=== PATIENT | female | born 1990 | race Two or more races ===

== ENCOUNTER 2024-05-13 08:05 | Emergency (ER) | payer MEDICAID, SELFPAY ==
--- NOTE | 2024-05-13 08:20 | XR_ITS ---
Examination: CT abdomen and pelvis without contrast. Coronal 3-D reconstructions. Sagittal 2-D reconstructions. Date and time of exam:May 13, 2024 at 0950 hrs. Comparison: February 04, 2024 Indications: Left flank pain difficulty urinating beginning 3 weeks ago, history left kidney stones, bladder calculi, moderate left mild right hydronephrosis on CT abdomen pelvis February 04, 2024 CTDI: vol (mGy): 8.65 DLP: (mGycm): 150 Technique: Axial images of the abdomen have been obtained, 3 mm slice thickness Intravenous contrast material has not been administered. Low dose protocols were performed. One or more of the following dose reduction techniques were used; automated exposure control, adjustment of the mA and/or KV according to patient size, use of iterative reconstruction technique. Findings: No focal liver or splenic lesion Absent gallbladder No pancreatic or adrenal mass 12 mm probable right renal proteinaceous cyst 2 mm lower pole right renal calculus Mild right hydronephrosis, no right ureteral calculi Multiple surgical opacities left kidney, atrophic left kidney with prominent renal scar formation and moderate left hydronephrosis 3 mm posterior left renal calculus No left ureteral calculi Aorta normal size Normal appendix Small fat-containing umbilical hernia Anteverted uterus Right adnexal 26 mm hypodense mass Urinary bladder contracted around a 4.3 cm bladder calculus, urinary bladder wall thickening up to 7 mm Osseous structures are intact Impression: Bilateral renal calculi Mild right hydronephrosis, no ureteral calculi Atrophic left kidney, prominent left renal parenchymal scar formation, moderate left hydronephrosis, no left ureteral calculi 4.3 cm bladder calculus, urinary bladder wall thickening up to 7 mm The overall appearance is consistent with severe cystitis with vesicoureteral reflux
--- NOTE | 2024-05-13 08:21 | PD.EDRME ---
Rapid Medical Screening Exam RME Arrival date/time: 05/13/24 08:05 34-year-old female presents emergency department today stating that she has a kidney stone patient reports significant pain Chief Complaint: Abdominal Pain
[2024-05-13 08:23] VITALS: BP 141/78; PULSE 101; RESP 18; TEMP 37.2; O2SAT 100
[2024-05-13 08:24] VITALS: BMI 30.7
[2024-05-13 08:45] LABS: Collection Type, Urine Clean Catch
[2024-05-13 08:49] VITALS: BP 133/93; PULSE 93; RESP 19; TEMP 36.8; O2SAT 100
--- NOTE | 2024-05-13 08:50 | PD.EDABDPN ---
ED Abdominal Pain RME/HPI General Chief Complaint: Abdominal Pain Stated complaint: KIDNEY STONE TOO BIG TO PASS Time seen by provider: 05/13/24 08:49 Arrival date/time: 05/13/24 08:05 RME / HPI RME / HPI narrative: 05/13/24 08:05 34-year-old female presents emergency department today stating that she has a kidney stone patient reports significant pain DR. PAWAN BERGER ED EVALUATION: 34 year old female presents to the Emergency Department with complaint of bilateral flank pain and bladder pain / suprapubic area pain onset 2017. Pain is described as aching and rated mild to moderate in severity. Associated symptoms a subjective fever and nausea. Patient denies any vomiting, diarrhea, or any other symptoms at this time. PMHx: Recurrent renal stones requiring ESWL and stents, recurrent UTI's. Urologist is Dr. Knight, last saw 02/2023. Nephrostomy 2023 when transferred to [facility] Hx: Methamphetamine, opiates, marijuana, and alcohol abuse. Related Data Previous Rx's ?Medication ?Instructions ?Recorded amoxicillin 875 mg-potassium 1 tab PO Q12H #20 tabs 12/18/23 clavulanate 125 mg tablet ciprofloxacin HCl 500 mg tablet 500 mg PO BID #14 tabs 02/04/24 (Cipro) ibuprofen 800 mg tablet 800 mg PO TID PRN pain #30 tabs 02/04/24 phenazopyridine 200 mg tablet 200 mg PO TID PRN pain 6 doses #6 02/04/24 (Pyridium) tabs ibuprofen 600 mg tablet 600 mg PO Q6H PRN pain #30 tabs 05/13/24 nitrofurantoin 100 mg PO BID 7 days #14 caps 05/13/24 monohydrate/macrocrystals 100 mg capsule (Macrobid) Allergies Allergy/AdvReac Type Severity Reaction Status Date / Time morphine Allergy Severe Difficulty Verified 05/13/24 08:09 Breathing Review of Systems Review of Systems Systems Reviewed: All systems reviewed, normal except as documented Narrative Review of Systems: GEN: + subjective fever, no chills, no weight loss EYES: No discharge, no visual changes, no pain HEENT: No ear pain, no congestion, no sore throat PULM: No shortness of breath, no cough, no congestion CV: No chest pain, no dyspnea on exertion, no palpitations GI: + nausea, no vomiting, no diarrhea, + bilateral flank pain, + suprapubic area pain, no constipation : No frequency, no urgency and no dysuria MUSC/SKEL: No joint pain, no back pain SKIN: No rash PSYCH: No hallucinations, no depression HEME/LYMPH: No easy bleeding or bruising tendencies NEURO: No weakness, no headache Past Medical History Past Medical History NEUROLOGIC: Negative Neurological Disorders or Seizures CARDIAC: Negative Cardiac Disorders or Congestive Heart Failure RESPIRATORY: Positive Pneumonia; Negative Chronic Obstructive Pulmonary Disease (COPD) or Asthma GASTROINTESTINAL: Positive Gastrointestinal Disorders, Hepatitis and Obesity GENITOURINARY: Positive Genitourinary Disorders and Kidney Stones (NEPHROSTOMY 2022); Negative Renal Disease REPRODUCTIVE: Negative Previous Pregnancies MUSCULOSKELETAL: Negative Musculoskeletal Disorders ENDOCRINE: Negative Endocrine Disorders, Diabetes Mellitus Type 1 or Diabetes Mellitus Type 2 HEMATOLOGIC: Negative Blood Disorders or Sickle Cell Disease PSYCHO/SOCIAL: Positive Psychiatric Problems, Recreational Drug Use and Depression OTHER HISTORY: Positive Hospitalization and Chicken Pox; Negative Autoimmune Disease, Shingles, Blood Transfusions, Blood Transfusion Reaction, Anesthesia Reactions, Clostridium Difficile or Cancer Family History FAMILY HISTORY: Positive Family Cardiac Disorders and Family Endocrine Disorders; Negative Family Psychiatric Problems, Family Respiratory Disorders, Family Gastrointestinal Problems, Family Cancer, Family Surgery or Family Anesthesia Reaction Surgical History SURGICAL: Positive Abdominal Surgery Social History SMOKING STATUS: Never smoker SUBSTANCE USE: methamphetamine (last used yesterday) ALCOHOL: Current ED Exam Narrative Physical exam: GENERAL APPEARANCE: Well hydrated, well nourished, in no acute distress. VITALS: All vitals were reviewed and the pulse ox is 100% on room air which is normal according to my interpretation. HEENT: Normocephalic, atramatic, EOMI, EACs are patent. There is no bulge or retraction. Throat without erythema or exudate. Moist oromucosa. No jaundice NECK: Supple, no JVD or bruits. CARDIOVASCULAR: Heart regular without S3-S4 or murmur. No rubs or gallops. LUNGS/CHEST: Clear to auscultation bilaterally. No rales, rhonchi, or wheezing. Normal inspection. ABDOMEN: There is tenderness in the suprapubic area. Normal bowel sounds. No pulsatile masses. No incarcerated hernia. EXTREMITIES: No edema, clubbing, or cyanosis. Intact CSM. Normal inspection and palpation. SKIN: Warm and dry without rashes. Normal inspection. MUSCULOSKELETAL: No gross deformity, full ROM all extremities. Normal inspection. NEURO: Alert and oriented x3. Cranial nerves II through XII grossly intact. There are no other motor or sensory deficits noted. PSYCHIATRIC: Normal mood and affect. No psychosis. Course Quality Measures none Orders Category Date Time Status CT abdomen pelvis wo con Stat Exams 05/13/24 08:20 Completed Alcohol, Blood Medical Stat Lab 05/13/24 08:48 Completed CBC Stat Lab 05/13/24 08:48 Completed Comprehensive Metabolic Panel Stat Lab 05/13/24 08:48 Completed Drug Screen,Urine Stat Lab 05/13/24 08:33 Completed HCG Qualitative,Urine Stat Lab 05/13/24 08:33 Completed Lipase Stat Lab 05/13/24 08:48 Completed UA, C/S IF [Urinalysis, C/S if Indicated] Stat Lab 05/13/24 08:33 Completed HYDROcodone*/APAP 5/325 [[place] 5/325] Med 05/13/24 13:53 Once 1 tab PO X1 ONE Ketorolac Inj [Toradol Inj] Med 05/13/24 08:20 Discontinued 30 mg IVP X1 ONE Ketorolac Inj [Toradol Inj] Med 05/13/24 13:36 Discontinued 30 mg IVP X1 ONE Nitrofurantoin Macro [Macrobid] Med 05/13/24 13:48 Discontinued 100 mg PO X1 ONE Ondansetron Inj [Zofran Inj] Med 05/13/24 08:21 Discontinued 4 mg IV X1 ONE Sodium Chloride 0.9% 1000 ml [Ns] 1,000 ml Med 05/13/24 08:20 Discontinued IV 999 mls/hr Vital Signs Vital signs: Vital Signs Temperature 98.9 F 05/13/24 08:23 Pulse Rate 101 H 05/13/24 08:23 Respiratory Rate 18 05/13/24 08:23 Blood Pressure 141/78 H 05/13/24 08:23 Pulse Oximetry (%) 100 05/13/24 08:23 Oxygen Delivery Method Room Air 05/13/24 08:23 Abdominal Pain MDM MDM Narrative MDM Narrative:: I, Elvira Nogueira, am scribing for and in the presence of Dr. Dominguez. The patient is known to have a big bladder stone. And also big bilateral vesicular ureteral reflux. Came in complaining of suprapubic pain. WBC count is 13,000. CMP and lipase are negative. UA is positive for 3+ bacteria. Which is not unusual for her. Alcohol negative. Talk screen is positive for methamphetamine. test is negative. CT abdomen and pelvic was reviewed by and interpreted by me: Status post cholecystectomy. Liver and pancreas and spleen unremarkable. There is some hydronephrosis and hydroureter was involving both kidneys and ureters. But there is no ureteral stone. Raising the possibility of vesicular ureteral reflux. There is a 4.3 cm stone inside the bladder. These findings are almost identical to the one in January 2024 CT. No free air. No free fluid. No obstruction. In the emergency department the patient received IV fluid, Toradol and IV and IM, and Macrobid for urinary tract infection. Even though she is allergic to morphine, she is not allergic to [place]. Therefore I gave her [place]. 1:50 PM, I spoke to and discussed with , her urologist. He knows her very well. He recommend that I put him back on the antibiotic that she was sensitive to in the past microbiology lab. Which is Macrobid. He okay for her to follow-up with him as an outpatient. Patient data External records reviewed:: [facility] previous records (Reviewed last ED visit dated 02/04/24, discharged with the following: UTI) Clinical information provided by:: patient Social determinants that could affect healthcare access:: substance use (methamphetamine, opiates, marijuana, alcohol abuse) Patient has the following chronic illnesses:: Recurrent renal stones requiring ESWL and stents, recurrent UTI's. Urologist is Dr. Knight. How is presenting disease/condition affected by chronic disease/condition?: caused by Evaluation data The following diagnostics were reviewed and interpreted by me:: lab results and radiology exam(s) Lab and/or radiology exams considered but not ordered:: none Interpretation Summary: See above under MDM narrative. RADIOLOGY Procedure(s): CT abdomen pelvis wo con Accession Number(s): [id number] cc: Ammy (SOCIAL MEDIA SR STRATEGY MANAGER),Sheldon SOCIAL MEDIA SR STRATEGY MANAGER; Juan Antonio Jones MD; Esthela Gibbs NP~ Examination: CT abdomen and pelvis without contrast. Coronal 3-D reconstructions. Sagittal 2-D reconstructions. Date and time of exam:May 13, 2024 at 0950 hrs. Comparison: February 04, 2024 Indications: Left flank pain difficulty urinating beginning 3 weeks ago, history left kidney stones, bladder calculi, moderate left mild right hydronephrosis on CT abdomen pelvis February 04, 2024 CTDI: vol (mGy): 8.65 DLP: (mGycm): 150 Technique: Axial images of the abdomen have been obtained, 3 mm slice thickness Intravenous contrast material has not been administered. Low dose protocols were performed. One or more of the following dose reduction techniques were used; automated exposure control, adjustment of the mA and/or KV according to patient size, use of iterative reconstruction technique. Findings: No focal liver or splenic lesion Absent gallbladder No pancreatic or adrenal mass 12 mm probable right renal proteinaceous cyst 2 mm lower pole right renal calculus Mild right hydronephrosis, no right ureteral calculi Multiple surgical opacities left kidney, atrophic left kidney with prominent renal scar formation and moderate left hydronephrosis 3 mm posterior left renal calculus No left ureteral calculi Aorta normal size Normal appendix Small fat-containing umbilical hernia Anteverted uterus Right adnexal 26 mm hypodense mass Urinary bladder contracted around a 4.3 cm bladder calculus, urinary bladder wall thickening up to 7 mm Osseous structures are intact Impression: Bilateral renal calculi Mild right hydronephrosis, no ureteral calculi Atrophic left kidney, prominent left renal parenchymal scar formation, moderate left hydronephrosis, no left ureteral calculi 4.3 cm bladder calculus, urinary bladder wall thickening up to 7 mm The overall appearance is consistent with severe cystitis with vesicoureteral reflux Dictated By: Juan Antonio Jones MD Medications / Prescriptions Medications or Prescriptions considered but not ordered:: none Medication administrations:: Medication Administration History Discontinued Medications Sodium Chloride (Ns) 1,000 mls @ 999 mls/hr IV .Q1H1M ONE Stop: 05/13/24 09:20 Last Infusion: 05/13/24 13:14 Dose: Infused Documented By: Admin: 05/13/24 09:13 Dose: 999 mls/hr Documented By: GM Ketorolac Tromethamine (Ketorolac Inj 30 Mg/Ml Vial) 30 mg IVP X1 ONE Stop: 05/13/24 08:21 Last Admin: 05/13/24 09:14 Dose: 30 mg Documented By: GM Ketorolac Tromethamine (Ketorolac Inj 30 Mg/Ml Vial) 30 mg IVP X1 ONE Stop: 05/13/24 13:37 Last Admin: 05/13/24 13:39 Dose: 30 mg Documented By: DO Nitrofurantoin Macrocrystals (Nitrofurantoin Macro 100 Mg Capsule) 100 mg PO X1 ONE Stop: 05/13/24 13:49 Ondansetron HCl (Ondansetron Inj 2 Mg/Ml Inj 2 Ml) 4 mg IV X1 ONE; Protocol Stop: 05/13/24 08:22 Last Admin: 05/13/24 09:14 Dose: 4 mg Documented By: GM see above Consultations Consultation(s) initiated? (list below): Yes Diagnosis Differential diagnosis abdominal pain: abdominal pain, calculus of kidney, diverticulitis and gastroenteritis Most likely diagnosis given after review of the tests above:: Vesicular ureteral reflux. Cystitis. Bladder calculi Admission Indicated Admission indicated?: not indicated Admission Request Was there a request for admission?: Yes Admission Attestation Admission request attestation: Discussed case with [] from Hospitalist service regarding admission. Discussed patients ED course, exam findings, labs, and radiology results. The Hospitalist [agrees,declines] to accept the patient for admission. Disposition Plan Disposition Plan: Discharge Discharge Attestation Discharge Attestation: The patient and all family members were given an opportunity to ask questions and understood the discharge instructions. Discharge instructions specifically effects, indications for sooner follow up or return to the emergency department, and the expected course of current diagnosis. Patient condition: Stable Discharge Plan Plan Patient Disposition: HOME (Self Care) Disposition Comment: Stable and improved Prescriptions/Referrals Prescriptions/Med Rec: New nitrofurantoin monohyd/m-cryst [Macrobid] 100 mg capsule 100 mg PO BID 7 Days Qty: 14 0RF Rx Instructions: must administer with a meal/food ibuprofen 600 mg tablet 600 mg PO Q6H PRN (Reason: pain) Qty: 30 0RF No Action amoxicillin-pot clavulanate 875-125 mg tablet 1 tab PO Q12H Qty: 20 0RF ciprofloxacin HCl [Cipro] 500 mg tablet 500 mg PO BID Qty: 14 0RF phenazopyridine [Pyridium] 200 mg tablet 200 mg PO TID PRN (Reason: pain) Qty: 6 0RF ibuprofen 800 mg tablet 800 mg PO TID PRN (Reason: pain) Qty: 30 0RF Referrals: Junior Knight MD [Physician] - In 1 week Esthela Rosario NP [Primary Care Provider] - In 1 week Problem List Clinical Impression: Bladder calculi, Cystitis, Vesicoureteral reflux Patient/Caregiver Discharge Instructions Education Materials: Understanding Bladder Stones, ED CYSTITIS Female Adult Additional Instructions: You have bladder infection, bladder stones and bladder kidney reflux disease. Take medication as prescribed. I spoke with Dr. Knight. He wanted you to see him as an outpatient. Please make an appointment. With him. Return the nearest emergency department if condition worsens or if new symptoms develop especially fever or trouble urinating. Print Language: Welsh Stand Alone Forms: Leisa Award Info., Patient Portal Info Letter
[2024-05-13 08:53] LABS: Bilirubin,Urine Negative (Negative); Blood,Urine 2+ (Negative); Glucose, Urine Negative (Negative); Ketones,Urine Negative (Negative); Leukocyte Esterase,Urine Positive (Negative); Nitrite,Urine Negative (Negative); Protein,Urine 3+ (Neg - Trace); Specific Gravity,Urine 1.011 (1.001-1.035); Urobilinogen,Urine Negative mg/dL (0.0-1.0)
[2024-05-13 08:55] LABS: HCG Qualitative,Urine Negative
[2024-05-13 09:03] LABS: Amphetamine/Methamp Scrn,U Positive (Negative); Barbiturate Screen,Urine Negative (Negative); Benzodiazepines Screen,Urine Negative (Negative); Benzoylecgonine Screen, Ur Negative (Negative); Fentanyl Screen,Urine Negative (Negative); Opiate Screen,Urine Negative (Negative); THC Screen,Urine Negative (Negative)
[2024-05-13 09:09] LABS: Basophils # (Auto) 0.1 Thou/mm3 (0.0-0.2); Basophils % (Auto) 1 % (0-2.5); Eosinophils # (Auto) 0.3 Thou/mm3 (0.0-0.5); Eosinophils % (Auto) 2 % (0-10); Hematocrit 33.3 % (36.0-46.0); Hemoglobin 10.1 g/dL (12.0-16.0); Immature Granulocytes % (Auto) 0 % (0-0); Immature Granulocytes Auto 0.04 Thou/mm3 (0.00-0.00); Lymphocytes % (Auto) 15 % (10-50); Mean Corpuscular HGB Conc 30.3 g/dl (31.0-37.0); Mean Corpuscular Hemoglobin 21.5 pg (25.0-35.0); Mean Corpuscular Volume 71 fL (80-100); Monocytes # (Auto) 1.2 Thou/mm3 (0.0-0.8); Monocytes % (Auto) 9 % (0-12); Neutrophils # (Auto) 9.6 Thou/mm3 (1.8-7.7); Neutrophils % (Auto) 73 % (37-80); Nucleated Red Blood Cell % 0 /100 WBC (0); Platelet Count 275 Thou/mm3 (140-440); RDW Standard Deviation 40.8 fL (36.4-46.3); White Blood Count 13.1 Thou/mm3 (3.6-11.0)
[2024-05-13] MEDS: SODIUM CHLORIDE 0.9% 1000 ML 1,000 ML 999 ML IV (09:13)
[2024-05-13] MEDS: KETOROLAC INJ 30 MG/ML VIAL IVP ×2 (09:14→13:39)
[2024-05-13] MEDS: ONDANSETRON INJ 2 MG/ML INJ 2 ML 4 MG IV (09:14)
[2024-05-13 09:18] LABS: Clarity,Urine Turbid (Clear/Hazy); Color,Urine Colorless (Lt Yel-Yel)
[2024-05-13 09:19] LABS: Bacteria,Urine 3+; Culture Indicated,Urine Contaminated; RBC,Urine 145 /hpf (0-3); Squamous Epithelial Cell,Urine 12 /hpf (0-5); Transitional Epi Cells,Urine 1 /hpf (0-5); WBC,Urine 1408 /hpf (0-5)
[2024-05-13 09:32] LABS: Alanine Aminotransferase 14 U/L (10-49); Albumin, Serum 4.6 gm/dL (3.5-5.0); Albumin/Globulin Ratio 1.4 (1.2-2.2); Alcohol, Blood Medical < 3.0 mg/dL (0-10.0); Alkaline Phosphatase 69 U/L (46-116); Anion Gap 11 (7-16); Aspartate Amino Transferase 25 U/L (0-34); BUN/Creatinine Ratio 18 Ratio (12-20); Bilirubin,Total 0.4 mg/dL (0.3-1.2); Blood Urea Nitrogen 21 mg/dL (9-23); Calcium 9.4 mg/dL (8.3-10.6); Calcium (Corrected) 9.4 mg/dL (8.5-10.1); Carbon Dioxide 22.4 mMol/L (20.0-31.0); Chloride 103 mMol/L (98-107); Creatinine (Component) 1.2 mg/dL (0.6-1.3); Estimated Creatinine Clearance 54.7 mL/min (>60); Globulin 3.2 gm/dL (2.3-3.5); Glucose 91 mg/dL (74-106); Lipase 29 U/L (12-53); Osmolality,Calculated 274 (275-295); Potassium 4.2 mMol/L (3.4-5.1); Sodium 136 mMol/L (136-145); Total Protein 7.8 gm/dL (5.7-8.2); eGFR > 60 See Note
[2024-05-13 10:00] VITALS: BP 133/79; PULSE 78; RESP 20; TEMP 37.1; O2SAT 99
[2024-05-13 11:00] VITALS: BP 122/72; PULSE 84; RESP 18; TEMP 37.3; O2SAT 96
[2024-05-13 12:58] VITALS: BP 118/72; PULSE 92; RESP 15; TEMP 37.4; O2SAT 100
[2024-05-13] MEDS: NITROFURANTOIN MACRO 100 MG CAPSULE PO (13:59)
[2024-05-13] MEDS: HYDROcodone/APAP 5/325 TABLET 1 TAB PO (13:59)
--- NOTE | 2024-05-13 14:20 | PC.NURSE ---
@7330- VERBAL ORDER RECEIVED FOR CESPEDES CATHETER INSERTION @1422- RN AT BEDSIDE; PT REFUSING CESPEDES CATHETER AT THIS TIME AND REPORTS STILL BEING ABLE TO PEE NORMALLY. PT ALSO STATES, I WILL SEE THE UROLOGIST TOMORROW. @9601- DR. VILLALTA MADE AWARE; CESPEDES CATHETER INSERTION CANCELED AT THIS TIME.
[2024-05-13 14:25] VITALS: BP 127/93; PULSE 94; RESP 19; TEMP 36.8; O2SAT 99
== END 2024-05-13 14:32 | disposition home or self-care (01) ==
PROVIDERS: Nurse Practitioner Primary Care; Emergency Provider Emergency Medicine; PCP Registered Nurse Community Health
DX: N30.90 Cystitis, unspecified without hematuria (principal); N21.0 Calculus in bladder; N26.1 Atrophy of kidney (terminal); N13.70 Vesicoureteral-reflux, unspecified; N13.30 Unspecified hydronephrosis
CPT/HCPCS: 36415; 74176; 80053; 80307; 80320; 81001; 81025; 83690; 85025; 96361; 96374; 96375; 96376; 99284; J1885; J2405; J7030; A9270; G0480

== ENCOUNTER 2024-05-14 03:17 | Emergency (ER) | payer MEDICAID, SELFPAY ==
[2024-05-14 03:17] VITALS: BMI 30.9
[2024-05-14 04:04] VITALS: BP 124/78; PULSE 114; RESP 19; TEMP 38.2; O2SAT 99
--- NOTE | 2024-05-14 04:20 | PD.EDRME ---
Rapid Medical Screening Exam E Arrival date/time: 05/14/24 03:17 34-year-old female past medical history of kidney stones presents emergency department complaining of fever and pelvic pain. Chief Complaint: Urogenital-Female Vital signs: Vital Signs Temperature 100.7 F H 05/14/24 04:04 Pulse Rate 114 H 05/14/24 04:04 Respiratory Rate 19 05/14/24 04:04 Blood Pressure 124/78 05/14/24 04:04 Pulse Oximetry (%) 99 05/14/24 04:04 Oxygen Delivery Method Room Air 05/14/24 04:04 Vital signs reviewed by provider: Yes
--- NOTE | 2024-05-14 04:47 | PC.NURSE ---
PT ELOPED THE ER PER SECURITY.
== END 2024-05-14 04:55 | disposition left against medical advice (07) ==
LOC: SERX 04:30
PROVIDERS: Emergency Provider Emergency Medicine; PCP Registered Nurse Community Health
DX: R50.9 Fever, unspecified (principal); R10.2 Pelvic and perineal pain; Z53.29 Procedure and treatment not carried out because of patient's decision for other reasons
CPT/HCPCS: 80053; 81001; 85025; 99281

== ENCOUNTER 2024-05-14 08:53 | Emergency (ER) | payer MEDICAID, SELFPAY ==
[2024-05-14] VITALS (11 sets, daily range): BP systolic 96–143; BP diastolic 48–84; PULSE 90–124; RESP 19–21; TEMP 36.7–39.2; O2SAT 94–100; BMI 30.9
--- NOTE | 2024-05-14 09:20 | PD.EDFMALE ---
ED Female Urogenital RME/HPI General Chief complaint: Urogenital-Female Stated complaint: KIDNEY STONES Time Seen by Provider: 05/14/24 09:11 Arrival date/time: 05/14/24 08:53 RME / HPI RME / HPI Narrative: 34 year old female with history of recurrent kidney stones requiring ESWL and stents, bladder stones, previous nephrostomy tube, recurrent UTIs, methemphetamine use presents to the ED BIBA from home for evaluation of worsening bilateral flank pain today. Pain described as aching, rating as severe. Accompanied by fevers, chills, nausea, pressure in her bladder, and dysuria. Patient was evaluated here yesterday for similar symptoms and states symptoms today are worse. Patient admits to using meth 3 days ago. Patient reports she last saw urologist Dr. Knight a year ago. Related Data Home Medications ?Medication ?Instructions ?Recorded ?Confirmed No Known Home Medications 05/14/24 05/14/24 Allergies Allergy/AdvReac Type Severity Reaction Status Date / Time morphine Allergy Severe Difficulty Verified 05/14/24 09:20 Breathing Review of Systems Review of Systems Narrative Review of Systems: GEN: +fevers, +chills, no weight loss EYES: No discharge, no visual changes, no pain HEENT: No ear pain, no congestion, no sore throat PULM: No shortness of breath, no cough, no congestion CV: No chest pain, no dyspnea on exertion, no palpitations GI: +nausea, no vomiting, no diarrhea, +pain, no constipation : No frequency, no urgency, +dysuria MUSC/SKEL No joint pain, +back pain SKIN: No rash PSYCH: No hallucinations, no depression HEME/LYMPH: No easy bleeding or bruising tendencies NEURO: No weakness, no headache Past Medical History Past Medical History RESPIRATORY: Positive Pneumonia GASTROINTESTINAL: Positive Gastrointestinal Disorders, Hepatitis and Obesity GENITOURINARY: Positive Genitourinary Disorders and Kidney Stones PSYCHO/SOCIAL: Positive Psychiatric Problems, Recreational Drug Use and Depression OTHER HISTORY: Positive Hospitalization and Chicken Pox Family History FAMILY HISTORY: Positive Family Cardiac Disorders Surgical History SURGICAL: Positive Abdominal Surgery Social History SMOKING STATUS: Never smoker SUBSTANCE USE: methamphetamine (last used yesterday) ED Exam Narrative Physical exam: GENERAL APPEARANCE: Well hydrated, well nourished, in no acute distress. VITALS: All vitals were reviewed, patient is febrile and the pulse ox is 100% on room air which is normal according to my interpretation. HEENT: Normocephalic, atramatic, EOMI, EACs are patent. There is no bulge or retraction. Throat without erythema or exudate. Moist oromucosa. No jaundice NECK: Supple, no JVD or bruits. CARDIOVASCULAR: Heart regular without S3-S4 or murmur. No rubs or gallops. LUNGS/CHEST: Clear to auscultation bilaterally. No rales, rhonchi, or wheezing. Normal inspection. ABDOMEN: Soft, suprapubic tenderness to palpation, bladder is distended, with normal bowel sounds. No pulsatile masses. No rebound, rigidity, or guarding. No incarcerated hernia. EXTREMITIES: Normal inspection and palpation. No edema, clubbing, or cyanosis. Intact CSM SKIN: Warm and dry without rashes. Normal inspection. MUSCULOSKELETAL: Normal inspection. No gross deformity, full ROM all extremities NEURO: Alert and oriented x3. Cranial nerves II through XII grossly intact. There are no other motor or sensory deficits noted. PSYCHIATRIC: Normal mood and affect. No psychosis Course Quality Measures Current suspected stage: sepsis Possible source: genitourinary Blood cultures ordered: completed in ED Antibiotic ordered: Yes Pertinent labs: 05/14/24 05/14/24 09:50 13:23 Lactic Acid 2.3 H mMol/L 1.2 mMol/L (0.4-2.0) (0.4-2.0) Procalcitonin 0.52 H ng/ml (0.0-0.49) sepsis Orders Category Date Time Status Bedside Influenza A&B Antigen Test NOW Care 05/14/24 09:17 Completed Zelaya [Urinary Catheter] QS Care 05/14/24 09:33 Active Miscellaneous Nursing Order NOW Care 05/14/24 13:51 Active Transfer to another facility [Transfer/Discharge] Discharge 05/14/[address] abdomen pelvis wo con Stat Exams 05/14/24 09:34 Completed Blood Culture (Lab) Stat Lab 05/14/24 09:50 Received CBC Stat Lab 05/14/24 09:50 Completed CMP [Comprehensive Metabolic Panel] Stat Lab 05/14/24 09:50 Completed Lactic Acid [Lactate (Lactic Acid)] Stat Lab 05/14/24 09:50 Completed Lactic Acid, 3 HR Stat Lab 05/14/24 13:23 Completed Lipase Stat Lab 05/14/24 09:50 Completed Procalcitonin Stat Lab 05/14/24 09:50 Completed UA, C/S IF [Urinalysis, C/S if Indicated] Stat Lab 05/14/24 11:05 Completed Urine Culture Stat Lab 05/14/24 11:05 Received Acetaminophen Tab [Tylenol ES Tab] Med 05/14/24 09:15 Discontinued 1,000 mg PO X1 ONE Ibuprofen Tab [Motrin Tab] Med 05/14/24 10:47 Discontinued 600 mg PO X1 ONE Imipenem/Cilastatin Inj [Primaxin Inj] 1,000 mg Med 05/14/24 09:18 Discontinued Sodium Chloride 0.9% 250 ml [Ns] 250 ml IV Q6HR Imipenem/Cilastatin Inj [Primaxin Inj] 1,000 mg Med 05/14/24 10:15 Discontinued Sodium Chloride 0.9% 250 ml [Ns] 250 ml IV X1 Meropenem Inj [Merrem Inj] 1,000 mg Med 05/14/24 22:00 Active Sodium Chloride 0.9% (P) [Ns 0.9% (P)] 50 ml IV Q8HR Sodium Chloride 0.9% 1000 ml [Ns] 1,000 ml Med 05/14/24 15:00 Active IV 100 mls/hr Sodium Chloride 0.9% 1000 ml [Ns] 2,000 ml Med 05/14/24 09:16 Discontinued IV 999 mls/hr Vital Signs Vital signs: Vital Signs Temperature 101.5 F H 05/14/24 08:59 Pulse Rate 124 H 05/14/24 08:59 Respiratory Rate 21 H 05/14/24 08:59 Blood Pressure 96/48 L 05/14/24 08:59 Pulse Oximetry (%) 100 05/14/24 08:59 Oxygen Delivery Method Room Air 05/14/24 08:59 Urogenital - Female MDM Narrative MDM Narrative:: I, Karyna Rubi, shaunna scribing for and in the presence of Dr. Dominguez. WBC count of 27,000. Potassium of 5.2. The rest of the CMP is negative. test was done yesterday and we came back negative. UA was done yesterday and came back with 3+ positive bacteria. And she was put on Macrobid. Lactic acid is now 2.3. Procalcitonin is now 0.52. Influenza is now negative. I saw the patient yesterday. Before discharging the patient home I offered to put a Zelaya in the bladder. But patient refused. She came back today with a temperature of 101.5 and evidence of urinary retention. Zelaya was inserted by nursing staff and we got approximately 1300 mL of cloudy urine. And immediately after the Zelaya was done and the bladder was drained the abdomen is no more painful. And nontender. And I went ahead and canceled the CT of the abdomen and pelvic for today. The last CT was done yesterday. When the patient came in with a fever 101.5, we called for septic alert. And treatment was according to the septic protocol including the IV fluid IV and the biotics namely imipenem because that was ESBL based on the last urine culture back in November 2023. I also give the patient Tylenol for the fever. She continues to do well and much improved. The last vital sign including a temperature 98.9 and vital signs are stable. Patient is sleeping comfortably but easily awakened to answer question well. Oriented x 4 GCS of 15. And no tender abdomen. 12 AM, I spoke to and discussed with Dr. Knight, urologist. He knew her very well from previous encounters back in 2022. He said he is no longer seeing her. Dr. LUTZ is not on-call. And he is semiretired. 1:40 PM, Dr. ferraro, resident of Dr. Elder, attending hospitalist on-call. He has assessed the patient for possible admit. But he does not feel comfortable admitting the patient without the backup of the urologist. He wants the patient transferred 5:30 PM, I spoke to and discussed with , urologist from [place]. He said there is no need for emergent transfer. He said to admit and treat for the urinary tract infection. Keep the Zelaya in. Once the patient to discharge the patient can follow-up with him at one of his clinics in [place]. And he said that the transfer nurse would be able to tell us the logistics of the clinics address, phone number Dr. Gee Chaudhary in 2 weeks[address] Address [address] [place] [address]. . office will contact the pt for the appointment 5:50 PM, I spoke to and discussed with , hospitalist on-call. He said that he would evaluate the patient in the emergency department. 6 PM, still pending decision from hospitalist team regarding admission or not, the patient is stable improved and is now signed out to Dr. Kaba Critical care time is approximately 35 minutes excluding any procedure. The high probability of sudden, clinically significant deterioration in the patient?s condition required the highest level of my preparedness to intervene urgently. The services I provided to this patient were to treat and/or prevent clinically significant deterioration. Services included the following: chart data review, reviewing nursing notes and/or old charts, documentation time, franchise field consultant collaboration regarding findings and treatment options, medication orders and management, direct patient care, vital sign assessments and ordering, interpreting and reviewing diagnostic studies and lab tests. Aggregate critical care time includes only time during which I was engaged in work directly related to the patient?s care, as described above, whether at bedside or elsewhere in the Emergency Department. It did not include time spent performing other reported procedures or the services of residents, students, nurses or physician assistants. Patient data External records reviewed:: [facility] previous records (I reviewed results from yesterdays ED visit (05/13/2024)) and EMS form Clinical information provided by:: patient and EMS Social determinants that could affect healthcare access:: substance use (Methamphetamine ) Patient has the following chronic illnesses:: recurrent kidney stones requiring ESWL and stents, bladder stones, previous nephrostomy tube, recurrent UTIs, methemphetamine use How is presenting disease/condition affected by chronic disease/condition?: exacerbated by Evaluation data The following diagnostics were reviewed and interpreted by me:: lab results Lab and/or radiology exams considered but not ordered:: None Interpretation Summary: Ordering Physician: Sheldon Dominguez MD Date of Service: 05/14/24 Procedure(s): CT abdomen pelvis wo [facility] Accession Number(s): [id number] cc: Juan Antonio Jones MD; Sheldon Dominguez MD; Esthela Gibbs NP~ Examination: CT abdomen and pelvis without contrast. Coronal 3-D reconstructions. Sagittal 2-D reconstructions. Date and time of exam:May 14, 2024 10:25 AM INDICATIONS: Fever flank pain today, history kidney stones CTDI: vol (mGy): 7.38 DLP: (mGycm): 408 Technique: Axial images of the abdomen have been obtained, 3 mm slice thickness Intravenous contrast material has not been administered. Low dose protocols were performed. One or more of the following dose reduction techniques were used; automated exposure control, adjustment of the mA and/or KV according to patient size, use of iterative reconstruction technique. Findings: No focal liver or splenic lesions Absent gallbladder No pancreatic or adrenal mass Atrophic left kidney with 3 mm calculus 2 mm 1 mm right renal calculi Mild to moderate right hydronephrosis no right ureteral calculi Again noted large bladder calculus, 4 cm, adjacent 12 mm bladder calculus with marked urinary bladder wall thickening Urinary Zelaya catheter is present Normal appendix No bowel obstruction No diverticulitis Bilateral adnexal cysts, the largest on the right side 24 mm IMPRESSION: Bilateral renal calculi Mild to moderate right hydronephrosis, most likely secondary to vesicoureteral reflux Cystitis pattern with bladder calculi, the largest 4 cm Normal appendix Bilateral adnexal cysts Dictated By: Juan Antonio Jones MD Signed By: <Electronically signed by Juan Antonio Jones MD in [place]> 05/14/24 1353 Medications / Prescriptions Medications or Prescriptions considered but not ordered:: None Medication administrations:: Medication Administration History Meropenem 1,000 mg/ Sodium (Chloride) 50 mls @ 100 mls/hr IV Q8HR SHAWN Stop: 05/21/24 21:59 Sodium Chloride (Ns) 1,000 mls @ 100 mls/hr IV .Q10H SHAWN Stop: 06/13/24 14:59 Last Admin: 05/14/24 16:59 Dose: 100 mls/hr Documented By: AM Discontinued Medications Acetaminophen (Acetaminophen 500 Mg Tablet) 1,000 mg PO X1 ONE Stop: 05/14/24 09:16 Last Admin: 05/14/24 09:28 Dose: 1,000 mg Documented By: AM Sodium Chloride (Ns) 2,000 mls @ 999 mls/hr IV .Q2H1M ONE Stop: 05/14/24 11:16 Last Infusion: 05/14/24 12:45 Dose: Infused Documented By: Admin: 05/14/24 10:05 Dose: 999 mls/hr Documented By: AM Imipenem/Cilastatin Sodium 1, (000 mg/ Sodium Chloride) 250 mls @ 250 mls/hr IV Q6HR STA Stop: 05/14/24 10:17 Last Admin: 05/14/24 12:49 Dose: Not Given Documented By: AM Non-Admin Reason: Discontinued Imipenem/Cilastatin Sodium 1, (000 mg/ Sodium Chloride) 250 mls @ 250 mls/hr IV X1 ONE Stop: 05/14/24 11:14 Last Infusion: 05/14/24 12:00 Dose: Infused Documented By: Admin: 05/14/24 10:56 Dose: 250 mls/hr Documented By: AM Ibuprofen (Ibuprofen Tab 600 Mg Tablet) 600 mg PO X1 ONE Stop: 05/14/24 10:48 Last Admin: 05/14/24 10:55 Dose: 600 mg Documented By: AM See above Consultations Consultation(s) initiated? (list below): Yes Consultation #1 (Physician, Specialty, Details): I spoke with urologist Dr. Knight. Discussed patients PMHx, HPI, ED course, exam findings, labs results as noted above. Time: 12:30 Consultation #2 (Physician, Specialty, Details): I spoke with hospitalist Dr. Elder. Discussed patients PMHx, HPI, ED course, exam findings, labs, and radiology results as noted above. Diagnosis Urogenital Female Differential Diagnosis: urinary tract infection and other (Bladder stone, kidney stone, pyelonephritis) Most likely diagnosis given after review of the tests above:: Bladder calculi sepsis vesicoureteral reflux UTI Admission Indicated Admission indicated?: indicated Admission Request Was there a request for admission?: Yes Admission Attestation Admission request attestation: Discussed case with [] from Hospitalist service regarding admission. Discussed patients ED course, exam findings, labs, and radiology results. The Hospitalist [agrees,declines] to accept the patient for admission. Disposition Plan Disposition Plan: Admit Critical Care Time Critical Care Time Critical Care Time: Yes Total Critical Care Time (min.): 35 Attestation: The high probability of sudden, clinically significant deterioration in the patient's condition required the highest level of my preparedness to intervene urgently. The services I provided to this patient were to treat and/or prevent clinically significant deterioration. Services included the following: chart data review, reviewing nursing notes and/or old charts, documentation time, franchise field consultant collaboration regarding findings and treatment options, medication orders and management, direct patient care, vital sign assessments and ordering, interpreting and reviewing diagnostic studies and lab tests. Aggregate critical care time includes only time during which I was engaged in work directly related to the patient's care, as described above, whether at bedside or elsewhere in the Emergency Department. It did not include time spent performing other reported procedures or the services of residents, students, nurses or physician assistants. Discharge Plan Plan Disposition Comment: Stable and improved at signout Prescriptions/Referrals Prescriptions/Med Rec: No Action No Known Home Medications Referrals: Esthela Rosario [employer] [Primary Care Provider] - In 1 week Problem List Clinical Impression: Bladder calculi, Sepsis, Vesicoureteral reflux, Urinary tract infection Patient/Caregiver Discharge Instructions Additional Instructions: . Print Language: Turkish
[2024-05-14] MEDS: ACETAMINOPHEN 500 MG TABLET 1000 MG PO (09:28)
--- NOTE | 2024-05-14 09:34 | XR_ITS ---
Examination: CT abdomen and pelvis without contrast. Coronal 3-D reconstructions. Sagittal 2-D reconstructions. Date and time of exam:May 14, 2024 10:25 AM INDICATIONS: Fever flank pain today, history kidney stones CTDI: vol (mGy): 7.38 DLP: (mGycm): 408 Technique: Axial images of the abdomen have been obtained, 3 mm slice thickness Intravenous contrast material has not been administered. Low dose protocols were performed. One or more of the following dose reduction techniques were used; automated exposure control, adjustment of the mA and/or KV according to patient size, use of iterative reconstruction technique. Findings: No focal liver or splenic lesions Absent gallbladder No pancreatic or adrenal mass Atrophic left kidney with 3 mm calculus 2 mm 1 mm right renal calculi Mild to moderate right hydronephrosis no right ureteral calculi Again noted large bladder calculus, 4 cm, adjacent 12 mm bladder calculus with marked urinary bladder wall thickening Urinary Zelaya catheter is present Normal appendix No bowel obstruction No diverticulitis Bilateral adnexal cysts, the largest on the right side 24 mm IMPRESSION: Bilateral renal calculi Mild to moderate right hydronephrosis, most likely secondary to vesicoureteral reflux Cystitis pattern with bladder calculi, the largest 4 cm Normal appendix Bilateral adnexal cysts
[2024-05-14] MEDS: SODIUM CHLORIDE 0.9% 1000 ML 2,000 ML 999 ML IV (10:05)
[2024-05-14 10:07] LABS: Lactate (Lactic Acid) 2.3 mMol/L (0.4-2.0)
[2024-05-14 10:12] LABS: Basophils # (Auto) 0.1 Thou/mm3 (0.0-0.2); Basophils % (Auto) 0 % (0-2.5); Eosinophils # (Auto) 0.1 Thou/mm3 (0.0-0.5); Eosinophils % (Auto) 1 % (0-10); Hematocrit 32.7 % (36.0-46.0); Immature Granulocytes % (Auto) 1 % (0-0); Immature Granulocytes Auto 0.18 Thou/mm3 (0.00-0.00); Lymphocytes # (Auto) 2.6 Thou/mm3 (1.0-4.8); Lymphocytes % (Auto) 10 % (10-50); Mean Corpuscular HGB Conc 30.6 g/dl (31.0-37.0); Mean Corpuscular Hemoglobin 21.7 pg (25.0-35.0); Mean Corpuscular Volume 71 fL (80-100); Monocytes # (Auto) 2.1 Thou/mm3 (0.0-0.8); Monocytes % (Auto) 8 % (0-12); Neutrophils # (Auto) 22.3 Thou/mm3 (1.8-7.7); Neutrophils % (Auto) 81 % (37-80); Nucleated Red Blood Cell % 0 /100 WBC (0); Platelet Count 314 Thou/mm3 (140-440); RDW Standard Deviation 40.8 fL (36.4-46.3); Red Blood Count 4.61 Miln/mm3 (4.00-5.20); White Blood Count 27.4 Thou/mm3 (3.6-11.0)
[2024-05-14 10:39] LABS: Alanine Aminotransferase 12 U/L (10-49); Albumin, Serum 4.2 gm/dL (3.5-5.0); Albumin/Globulin Ratio 1.4 (1.2-2.2); Alkaline Phosphatase 67 U/L (46-116); Anion Gap 10 (7-16); Aspartate Amino Transferase 24 U/L (0-34); BUN/Creatinine Ratio 13 Ratio (12-20); Bilirubin,Total 0.5 mg/dL (0.3-1.2); Blood Urea Nitrogen 15 mg/dL (9-23); Calcium 9.3 mg/dL (8.3-10.6); Calcium (Corrected) 9.3 mg/dL (8.5-10.1); Carbon Dioxide 21.3 mMol/L (20.0-31.0); Chloride 102 mMol/L (98-107); Creatinine (Component) 1.2 mg/dL (0.6-1.3); Estimated Creatinine Clearance 54.9 mL/min (>60); Glucose 98 mg/dL (74-106); Lipase 32 U/L (12-53); Osmolality,Calculated 267 (275-295); Potassium 5.2 mMol/L (3.4-5.1); Procalcitonin 0.52 ng/ml (0.0-0.49); Sodium 133 mMol/L (136-145); Total Protein 7.2 gm/dL (5.7-8.2); eGFR > 60 See Note
[2024-05-14] MEDS: IBUPROFEN TAB 600 MG TABLET PO (10:55)
[2024-05-14] MEDS: SODIUM CHLORIDE 0.9% IV (10:56)
[2024-05-14] MEDS: CILASTATIN IV (10:56)
[2024-05-14] MEDS: IMIPENEM IV (10:56)
[2024-05-14 13:05] LABS: Reflex Lactate? Y
[2024-05-14 13:31] LABS: Lactic Acid, 3 HR 1.2 mMol/L (0.4-2.0)
--- NOTE | 2024-05-14 13:45 | PD.RESEVENT ---
Documentation for date of: 05/14/24 Event Note Event Note: 34 y/o F with PMHx of recurrent kidney stones requiring urological intervention including stent placements, bladder stones, previous history of nephrostomy tube, recurrent urinary tract infectionsm, history of substance abuse disorder (methamphetamine) presented due to B/L pain in the flanks. Patient is having fevers, chills, nausea, and pain in the suprapubic area. Patient of note has recent ED visit yesteraday for similar symptoms, however states patients symptoms are worsening. Reviewed chart patient with leukocytosis trending up compared to yesterday, lactic acid trending up, hyperkalemia, there is concern of source control at this time. Spoke to Urology Dr. Knight recommended patient to be transferred to another institution for potential urological intervention. We recommend starting the patient on Meropenem, as well as IV hydration and symptomatic management with tylenol and zofran and transfer for possible urological intervention. Case discussed with my attending Dr. Jerrod Patricia MD PGY-1
--- NOTE | 2024-05-14 14:32 | PC.CM ---
Addendum entered by Rita Flores RN 05/14/24 19:41: 1925 informed ED charge nurse regarding transfer update so far. Pending call to [facility] when Dr. Kaba is available. [id number] received call from Emily at [facility], wants to speak to Dr. Kaba. I informed her is not available to speak at this time. But will return call when she is available. Addendum entered by Rita Flores RN 05/14/24 18:23: 1819 called [facility], spoke to Alyssa and initiated the transfer. She stated they are doing case by case. She stated she will review and call back. Addendum entered by Rita Flores RN 05/14/24 18:17: 1817 received call from charge nurse to continue looking to transfer the pt out. Addendum entered by Rita Flores RN 05/14/24 17:58: [address] Dominguez regarding the transfer. He stated need to follow up with hospitalist team to reassess the pt., if they agree to admit the pt. He stated he is getting off at [address] Kaba is oncoming physician. He stated to check with Dr. Kaba after hospitalist team reassess the pt. Addendum entered by Riat Flores RN 05/14/24 17:36: 1730 received call from Nitin at [facility]. She stated Dr. Chaudhary wants to speak to Dr. Dominguez for peer to peer. Conference call connected. He gave recommendations. He stated looks like pt has pyelonephritis and Zelaya needs to be placed, which is already done and pt can be admitted and hospitalist team can treat the pt with abx. Once it's treated pt can follow up with him as outpatient in 2 weeks. He stated Nitin can give me the information for his clinic which is follow up with Dr. Gee Chaudhary in [address] weeks[address] [place] [address]. . Nitin stated she is going to fax information to his clinic and office will contact the pt for the appointment. Addendum entered by Rita Flores RN 05/14/24 17:01: 1700 clinicals sent to [facility] TC. Addendum entered by Rita Flores RN 05/14/24 16:55: 1655 Called [facility], spoke to Nitin for update. She stated urologist is reviewing the case. Addendum entered by Rita Flores RN 05/14/24 15:26: 1530 Called [facility], spoke to Nitin and initiated the transfer. She wants to speak to Dr. Dominguez, conference call connected. Addendum entered by Rita Flores RN 05/14/24 15:09: 1509 clinicals sent to [facility]. Addendum entered by Cary Coe RN 05/14/24 14:52: 1452 Dipti from [facility] called back at this time and declined pt due to capacity Addendum entered by Cary Coe RN 05/14/24 14:42: 1442 spoke to Dipti at [facility] transfer center, chart faxed will wait for call back Addendum entered by Rita Flores RN 05/14/24 14:33: [address] Dominguez that physician notes states pt will be admitted and Dr. Vazquez will be consulting the pt. Dr. Dominguez stated it was the initial plan but residents spoke to Dr. Vazquez, he wants the pt transferred,. He stated he will update his notes. Original Note: [id number] received call from charge nurse that pt needs to be transferred for urology for bladder stone.
[2024-05-14 15:09] LABS: Collection Type, Urine Catheter
[2024-05-14 15:28] LABS: Bilirubin,Urine Negative (Negative); Blood,Urine Trace (Negative); Clarity,Urine Turbid (Clear/Hazy); Color,Urine Colorless (Lt Yel-Yel); Glucose, Urine Negative (Negative); Ketones,Urine Negative (Negative); Leukocyte Esterase,Urine Positive (Negative); Nitrite,Urine Negative (Negative); Protein,Urine Trace (Neg - Trace); RBC,Urine 16 /hpf (0-3); Squamous Epithelial Cell,Urine < 1 /hpf (0-5); Urobilinogen,Urine Negative mg/dL (0.0-1.0); WBC,Urine 116 /hpf (0-5)
[2024-05-14 15:29] LABS: Culture Indicated,Urine Yes
[2024-05-14] MEDS: SODIUM CHLORIDE 0.9% 1000 ML 1,000 ML 100 ML IV (16:59)
--- NOTE | 2024-05-14 18:08 | EVENTNT_ITS ---
Documentation for date of: 05/14/24 Event Note Event Note: 34 years old female with past medical history of recurrent kidney stones requiring urological procedures including stent placement, bladder stones, previous history of nephrostomy tube, recurrent urinary tract infections, histor y of substance abuse presented to the ED with complaint of bilateral pain in the flanks. Patient is having fevers, chills, nausea, and pain in the suprapubic area. Patient of note has recent ED visit yesterday for similar symptoms, however states patients symptoms are worsening. In the ED, she was tachycardiac, Tachypneic, Febrile. Lab results showed worsening leukocytosis compared to yesterday at 27.4 today.? Lactic acidosis of 2.3, BUN/creatinine 15/1.2, potassium 5.2 and positive procalcitonin.? Urine with trace blood, positive leukocyte esterase, 16 RBCs and 116 WBC.? Also noted to have hepatitis C antibody positive on 03/09/2023.? Abdominal/pelvis CT was done, which shows atrophic left kidney with 3 mm calculus, 2 mm and 1 mm right renal calculi, mild to moderate right hydronephrosis without ureteric calculi, bladder calculi, 4 cm and 12 mm, cystitis pattern and bilateral adnexal cysts.? Previous team had spoken with the urologist Dr Knight who recommended the patient to be transferred to another institution for potential urological intervention. We reached out to Dr. Murrieta, explained him about patient's situation, he also recommended transfer to higher center for possible urological intervention.? We recommend IV antibiotics, hydration, analgesics, antiemetics, antipyretics and transfer to higher center for possible urological intervention. Drew Marvin MD
--- NOTE | 2024-05-14 18:14 | PD.EDADDENDU ---
Emergency Room Addendum <Elvira Nogueira - Last Filed: 05/14/24 21:57> Addendum Narrative: 1800: Care assumed from Dr. Dominguez, the previous shift emergency physician. Past medical, surgical, social and family history reviewed. Vitals and home medications reviewed. I will assume the care of the patient at this time. Please refer to the emergency department record for history and examination.? Physical exam by me shows patient under no acute distress at this time. Patient sleeping at this time. Blood pressure 110/60, heart rate of 84. 96% on room air. 2130: Discussed test HPI, PMHx, lab, radiology results and/or management with [facility] and they deny transfer. <Emily Kaba MD - Last Filed: 05/14/24 23:15> Addendum Narrative: 1800: Care assumed from Dr. Dominguez, the previous shift emergency physician. Past medical, surgical, social and family history reviewed. Vitals and home medications reviewed. I will assume the care of the patient at this time. Please refer to the emergency department record for history and examination.? Physical exam by me shows patient under no acute distress at this time. Patient sleeping at this time. Blood pressure 110/60, heart rate of 84. 96% on room air. 2130: Discussed test HPI, PMHx, lab, radiology results and/or management with [facility] and they deny transfer. 2230: See nurses notes. The patient was yelling and screaming and cursing at the nurses. She got up pulled her IV out. I tried to de-escalate and tell the patient that I am willing to help her stay in the hospital however I cannot control when she will be accepted for transfer. The patient is alert and oriented x 3 and states that she wants to leave. She is angry and just does not want to wait. She is tired of waiting to be transferred. Risk and benefits discussed and the patient walked out. Please see nurses notes for further update.
--- NOTE | 2024-05-14 20:00 | PC.NURSE ---
1999 [facility] DECLINED PT DUE TO CAPACITY.
--- NOTE | 2024-05-14 22:17 | PC.NURSE ---
I WENT INTO PT ROOM DUE TO HER YELLING AT [facility] AND SLAMMING HER SHAH STAND AROUND. PT CONTINUED TO YELL AT ME AND DR. AMAYA ENTERED THE ROOM AND INFORMED HER SHE FREE TO LEAVE IF SHE WOULD LIKE . I TOLD HER WE NEED TO REMOVED HER IV AND CATHETER AND SHE YELLED AT ME STATING YOUR NOT GOING TO TOUCH ME YOU FUCKING BITCH AND RIPPED OUT HER IV. PRIMARY RN MIGUE IN THE ROOM TO TALK TO PT AT THIS TIME.
--- NOTE | 2024-05-15 05:38 | PC.NURSE ---
Pt very restless, aggresive and verbaly abusive twards staff. pt denies pain. pt has [facility] cath in place and wants to leave with the cath because its helping her. pt demanding to let her leave. Spoke with Dr Valerio stateds garrison cath can stay in. pt wants to se her other dr tomorrow. I attempted to reason with her about taking [facility] cath out, however she insisted.. pt demanding to leave. IV removed. Pt was informed verbaly that her condition and the cath could cause her harm or lead to her Pt verbalized she undersood and sighned out AMA with garrison cath in place.
== END 2024-05-14 23:30 | disposition left against medical advice (07) ==
PROVIDERS: Emergency Medicine; Emergency Provider Emergency Medicine; PCP Registered Nurse Community Health
DX: A41.9 Sepsis, unspecified organism (principal); N13.6 Pyonephrosis; N21.0 Calculus in bladder; Z53.29 Procedure and treatment not carried out because of patient's decision for other reasons
CPT/HCPCS: 51702; 36415; 74176; 80053; 81001; 83605; 83690; 84145; 84703; 85025; 87040; 87086; 87400; 96361; 96365; 99284; J0743; J7030; J7050; A9270

== ENCOUNTER 2024-05-15 14:22 | Emergency (ER) | payer MEDICAID, SELFPAY ==
--- NOTE | 2024-05-15 14:27 | PC.NURSE ---
PT BROUGHT TO TRIAGE BY EMS. WHILE MEDIC GIVING REPORT TO TRIAGE NURSE PT YELLED I JUST WANT THIS OUT (POINTS TO COY) AND I DON'T WANT TO WAIT. EXPLAINED THAT SHE NEEDED TO BE CHECKED IN FIRST AND PT YELLED ADWOA AND WALKED OUT
== END 2024-05-16 00:37 | disposition left against medical advice (07) ==
LOC: SERX 14:40
PROVIDERS: Emergency Provider Emergency Medicine
DX: Z53.21 Procedure and treatment not carried out due to patient leaving prior to being seen by health care provider (principal)

== ENCOUNTER 2024-09-23 15:38 | Emergency (ER) | payer MEDICAID, SELFPAY ==
[2024-09-23 16:05] VITALS: BP 132/86; PULSE 94; RESP 20; TEMP 37.3; O2SAT 98; BMI 26.2
--- NOTE | 2024-09-23 16:13 | XR_ITS ---
Examination: PA lateral chest 2 views TECHNIQUE: Upright PA lateral chest 2 views Date and time: September 23, 2024 1623 hours Comparison December 16, 2023 INDICATIONS: Coughing fever beginning 2 days ago. FINDINGS: Normal heart size Lungs are clear. The osseous structures are intact IMPRESSION: No active disease
[2024-09-23] MEDS: DEXAMETHASONE SOD PHOS INJ 10 MG/ML VIAL PO (16:33)
[2024-09-23] MEDS: ALBUTEROL/IPRATROPIUM (Duoneb) RT SOL 3 ML NEBU INH (16:39)
[2024-09-23 16:40] VITALS: PULSE 91; RESP 20; O2SAT 100
[2024-09-23 17:30] LABS: Strep A Rapid Negative (Negative)
--- NOTE | 2024-09-23 18:49 | EDNOTE_ITS ---
Upper Respiratory Inf. RME/HPI General Chief Complaint: Flu Like Symptoms Stated Complaint: COUGH WITH FEVER AND VOMITING Time Seen by Provider: 09/23/24 15:55 Arrival date/time: 09/23/24 15:38 RME / HPI RME / HPI Narrative: 34-year-old female presents to the ED with a complaint of headache, fever, cough, runny nose and nasal congestion, laryngitis and bodyaches, as well as vomiting. Related Data Previous Rx's ?Medication ?Instructions ?Recorded albuterol sulfate 90 mcg/actuation 2 puff inhalation Q 4H PRN 09/23/24 aerosol inhaler shortness of breath or wheez ing #8.5 grams amoxicillin 875 mg-potassium 1 tab PO BID Sinusitis #2 0 tabs 09/23/24 clavulanate 125 mg tablet ondansetron 4 mg disintegrating 4 mg PO Q6H PRN nausea and 09/23/24 tablet vomiting #10 tabs Allergies Allergy/AdvReac Type Severity Reaction Status Date / Time morphine Allergy Severe Difficulty Verified 09/23/24 15:41 Breathing Course Quality Measures none Orders Category Date Time Status Bedside COVID-19 Antigen Test NOW Care 09/23/24 16:13 Active Bedside Influenza A&B Antigen Test NOW Care 09/23/24 16:14 Completed XR chest 2V Stat Exams 09/23/24 16:13 Completed Strep A Rapid Stat Lab 09/23/24 17:09 Completed Albuterol/Ipratr Rt Lorri [Duoneb Rt Lorri] Med 09/23/24 16:13 Discontinued 3 ml INH X1 ONE Dexamethasone Inj [Decadron Inj] Med 09/23/24 16:13 Discontinued 10 mg PO X1 ONE Vital Signs Vital signs: Vital Signs Temperature 99.2 F 09/23/24 16:05 Pulse Rate 94 09/23/24 16:05 Respiratory Rate 20 09/23/24 16:05 Blood Pressure 132/86 H 09/23/24 16:05 Pulse Oximetry (%) 98 09/23/24 16:05 Oxygen Delivery Method Room Air 09/23/24 16:05 Upper Respiratory Infection Patient data External records reviewed:: None Clinical information provided by:: patient Social determinants that could affect healthcare access:: none Patient has the following chronic illnesses:: History of pneumonia, multiple dental abscesses, history of bladder calculi and history of pyelonephritis. How is presenting disease/condition affected by chronic disease/condition?: uneffected by Evaluation data The following diagnostics were reviewed and interpreted by me:: lab results and radiology exam(s) Lab and/or radiology exams considered but not ordered:: COVID, influenza A/B, and strep screen negative. Interpretation Summary: XR Chest: FINDINGS: Normal heart size Lungs are clear. The osseous structures are intact IMPRESSION: No active disease Medications / Prescriptions Medications or Prescriptions considered but not ordered:: N/A Medication administrations:: Medication Administration History Discontinued Medications Albuterol/Ipratropium (Albuterol/Ipratropium (Duoneb) Rt Lorri 3 Ml Nebu) 3 ml INH X1 ONE Stop: 09/23/24 16:14 Last Admin: 09/23/24 16:39 Dose: 3 ml Documented By: DORINDA Dexamethasone Sodium Phosphate (Dexamethasone Sod Phos Inj 10 Mg/Ml Vial) 10 mg PO X1 ONE Stop: 09/23/24 16:14 Last Admin: 09/23/24 16:33 Dose: 10 mg Documented By: OVI Altamirano and dexamethasone 10 mg p.o. Consultations Consultation(s) initiated? (list below): No Diagnosis Upper Respiratory Differential Diagnosis: upper respiratory infection, sinusitis, viral infection, bronchitis, influenza and pharyngitis Most likely diagnosis given after review of the tests above:: Sinusitis and bronchitis Admission Indicated Admission indicated?: not indicated Explain why admission is indicated or not indicated:: Patient is stable for discharge. Admission Request Was there a request for admission?: No Disposition Plan Disposition Plan: Discharge Discharge Attestation Discharge Attestation: The patient and all family members were given an opportunity to ask questions and understood the discharge instructions. Discharge instructions specifically effects, indications for sooner follow up or return to the emergency department, and the expected course of current diagnosis. Patient condition: Stable Discharge Plan Plan Patient Disposition: HOME (Self Care) Discharge Disposition comment: Stable and improved Prescriptions/Referrals Prescriptions/Med Rec: New amoxicillin-pot clavulanate 875-125 mg tablet 1 tab PO BID Qty: 20 0RF albuterol sulfate 90 mcg/actuation HFA aerosol inhaler 2 puff inhalation Q4H PRN (Reason: shortness of breath or wheezing) Qty: 8.5 0RF ondansetron 4 mg tablet,disintegrating 4 mg PO Q6H PRN (Reason: nausea and vomiting) Qty: 10 0RF Referrals: No Primary/Family,Physician [Primary Care Provider] - In 1 week Problem List Clinical Impression: Bronchitis, Sinusitis Patient/Caregiver Discharge Instructions Education Materials: ED Bronchitis with Wheezing (Adult), ED Sinusitis (Antibiotic Treatment) Additional Instructions: Take the antibiotics as prescribed and complete the course even though you may be feeling better. Follow-up with your primary care physician in 24 to 48 hours. Return to the ED for any new or worsening symptoms. Print Language: Ukrainian Stand Alone Forms: Leisa Award Info., Patient Portal Info Letter PA/[employer] SALES REPRESENTATIVE Supervising Physician PA/[employer] SALES REPRESENTATIVE Supervising Physician: Dr. Dias
== END 2024-09-23 19:15 | disposition home or self-care (01) ==
PROVIDERS: Physician Assistant; Emergency Provider Emergency Medicine
DX: J40 Bronchitis, not specified as acute or chronic (principal); J32.9 Chronic sinusitis, unspecified
CPT/HCPCS: 71046; 87400; 87651; 87811; 94640; 99283; A9270; J1100

== ENCOUNTER 2024-10-07 19:05 | Emergency (ER) | payer MEDICAID, SELFPAY ==
[2024-10-07 19:06] VITALS: BMI 32.7
[2024-10-07 19:59] VITALS: BP 128/60; PULSE 111; RESP 22; TEMP 37.1; O2SAT 99
--- NOTE | 2024-10-07 20:55 | EDNOTE_ITS ---
ED Headache RME/HPI General Chief Complaint: Flu Like Symptoms Stated Complaint: COUGHING X 17 DAYS, HEADACHE X 3 DAYS Time Seen by Provider: 10/07/24 20:20 Arrival date/time: 10/07/24 19:05 RME / HPI RME / HPI Narrative: 34-year-old female presents to the ED with a complaint of a headache that has been ongoing for 2 weeks. She was seen here previously and diagnosed with sinusitis and bronchitis. She completed the antibiotics but is still having a significant headache. She ran out of her inhaler. She denies fever chills, runny nose or nasal congestion, ear pain or sore throat. She still has a cough and is having difficulty sleeping due to the cough. She is also complaining of bilateral upper dental pain. Related Data Previous Rx's ?Medication ?Instructions ?Recorded albuterol sulfate 90 mcg/actuation 2 puff inhalation Q 4H PRN 09/23/24 aerosol inhaler shortness of breath or wheez ing #8.5 grams amoxicillin 875 mg-potassium 1 tab PO BID Sinusitis #2 0 tabs 09/23/24 clavulanate 125 mg tablet ondansetron 4 mg disintegrating 4 mg PO Q6H PRN nausea and 09/23/24 tablet vomiting #10 tabs albuterol sulfate 90 mcg/actuation 2 puff inhalation Q 4H PRN 10/07/24 aerosol inhaler shortness of breath or wheez ing #8.5 grams clindamycin HCl 300 mg capsule 300 mg PO TID 10 days # 30 caps 10/07/24 Allergies Allergy/AdvReac Type Severity Reaction Status Date / Time morphine Allergy Severe Difficulty Verified 10/07/24 19:09 Breathing Review of Systems Review of Systems Systems Reviewed: All systems reviewed, normal except as documented Past Medical History Past Medical History NEUROLOGIC: Negative Neurological Disorders or Seizures CARDIAC: Negative Cardiac Disorders or Congestive Heart Failure RESPIRATORY: Positive Pneumonia; Negative Chronic Obstructive Pulmonary Disease (COPD) or Asthma GASTROINTESTINAL: Positive Gastrointestinal Disorders, Hepatitis and Obesity GENITOURINARY: Positive Genitourinary Disorders and Kidney Stones; Negative Renal Disease REPRODUCTIVE: Negative Previous Pregnancies MUSCULOSKELETAL: Negative Musculoskeletal Disorders ENDOCRINE: Negative Endocrine Disorders, Diabetes Mellitus Type 1 or Diabetes Mellitus Type 2 HEMATOLOGIC: Negative Blood Disorders or Sickle Cell Disease PSYCHO/SOCIAL: Positive Psychiatric Problems, Recreational Drug Use and Depression OTHER HISTORY: Positive Hospitalization and Chicken Pox; Negative Autoimmune Disease, Shingles, Blood Transfusions, Blood Transfusion Reaction, Anesthesia Reactions, Clostridium Difficile or Cancer Family History FAMILY HISTORY: Positive Family Cardiac Disorders; Negative Family Psychiatric Problems, Family Respiratory Disorders, Family Gastrointestinal Problems, Family Cancer, Family Surgery or Family Anesthesia Reaction Surgical History SURGICAL: Positive Abdominal Surgery Social History SMOKING STATUS: Never smoker SUBSTANCE USE: methamphetamine (last used yesterday) ED Exam Narrative Physical exam: Alert 34-year-old female, no acute distress, nontoxic-appearing. Lungs are jd r, cardiovascular regular rate and rhythm without murmurs. Neck is supple, no adenopathy, TMs are without erythema, nares are pale and boggy, no frontal sinus tenderness. Positive bilateral maxillary sinus tenderness as well as maxillary bilateral maxillary tenderness. Pharynx is without erythema. Dentition is extremely poor with caries noted to all teeth with decay down to the gumline both upper and lower bilaterally. No obvious apical abscess noted. Abdomen is soft and nontender. She admits to meth abuse. Course Course Course Narrative: She was given Tylenol 1 g p.o. and Toradol 30 mg IM. Quality Measures none Orders Category Date Time Status Acetaminophen Tab [Tylenol ES Tab] Med 10/07/24 21:45 Discontinued 1,000 mg PO X1 ONE Ketorolac Inj [Toradol Inj] Med 10/07/24 20:59 Discontinued 30 mg IM X1 ONE Vital Signs Vital signs: Vital Signs Temperature 98.7 F 10/07/24 19:59 Pulse Rate 111 H 10/07/24 19:59 Respiratory Rate 22 H 10/07/24 19:59 Blood Pressure 128/60 10/07/24 19:59 Pulse Oximetry (%) 99 10/07/24 19:59 Oxygen Delivery Method Room Air 10/07/24 19:59 Headache MDM Narrative MDM Narrative:: 34-year-old female presents to the ED with a complaint of a headache that has been ongoing for 2 weeks. She was seen here previously and diagnosed with sinusitis and bronchitis. She completed the antibiotics but is still having a significant headache. She ran out of her inhaler. She denies fever chills, runny nose or nasal congestion, ear pain or sore throat. She still has a cough and is having difficulty sleeping due to the cough. She is also complaining of bilateral upper dental pain. Alert 34-year-old female, no acute distress, nontoxic-appearing. Lungs are clear, cardiovascular regular rate and rhythm without murmurs. Neck is supple, no adenopathy, TMs are without erythema, nares are pale and boggy, no frontal sinus tenderness. Positive bilateral maxillary sinus tenderness as well as maxillary bilateral maxillary tenderness. Pharynx is without erythema. Dentition is extremely poor with caries noted to all teeth with decay down to the gumline both upper and lower bilaterally. No obvious apical abscess noted. Abdomen is soft and nontender. She admits to meth abuse. She was given Tylenol 1 g p.o. and Toradol 30 mg IM. Patient data External records reviewed:: None Clinical information provided by:: patient Social determinants that could affect healthcare access:: none Patient has the following chronic illnesses:: N/A How is presenting disease/condition affected by chronic disease/condition?: no chronic disease Evaluation data The following diagnostics were reviewed and interpreted by me:: other (specify) (N/A) Lab and/or radiology exams considered but not ordered:: N/A Interpretation Summary: N/A Medications / Prescriptions Medications or Prescriptions considered but not ordered:: N/A Medication administrations:: Medication Administration History Discontinued Medications Acetaminophen (Acetaminophen 500 Mg Tablet) 1,000 mg PO X1 ONE Stop: 10/07/24 21:46 Last Admin: 10/07/24 21:50 Dose: 1,000 mg Documented By: LANA Ketorolac Tromethamine (Ketorolac Inj 60 Mg/2 Ml Vial) 30 mg IM X1 ONE Stop: 10/07/24 21:00 Last Admin: 10/07/24 21:55 Dose: Not Given Documented By: LANA Non-Admin Reason: Discontinued Tylenol 1 g p.o., Toradol 30 mg IM. Consultations Consultation(s) initiated? (list below): No Diagnosis Differential diagnosis headache: migraine, tension headache, headache, sinusitis and other (Dental abscess) Most likely diagnosis given after review of the tests above:: Dental abscess Admission Indicated Admission indicated?: not indicated Explain why admission is indicated or not indicated:: Patient is stable for discharge Admission Request Was there a request for admission?: No Admission Attestation Admission request attestation: N/A Disposition Plan Disposition Plan: Discharge Discharge Attestation Discharge Attestation: The patient and all family members were given an opportunity to ask questions and understood the discharge instructions. Discharge instructions specifically effects, indications for sooner follow up or return to the emergency department, and the expected course of current diagnosis. Patient condition: Stable Discharge Plan Plan Patient Disposition: HOME (Self Care) Discharge Disposition comment: Stable Prescriptions/Referrals Prescriptions/Med Rec: New clindamycin HCl 300 mg capsule 300 mg PO TID 10 Days Qty: 30 0RF albuterol sulfate 90 mcg/actuation HFA aerosol inhaler 2 puff inhalation Q4H PRN (Reason: shortness of breath or wheezing) Qty: 8.5 0RF No Action amoxicillin-pot clavulanate 875-125 mg tablet 1 tab PO BID Qty: 20 0RF albuterol sulfate 90 mcg/actuation HFA aerosol inhaler 2 puff inhalation Q4H PRN (Reason: shortness of breath or wheezing) Qty: 8.5 0RF ondansetron 4 mg tablet,disintegrating 4 mg PO Q6H PRN (Reason: nausea and vomiting) Qty: 10 0RF Referrals: No Primary/Family,Physician [Primary Care Provider] - In 1 week Problem List Clinical Impression: Dental abscess, Headache Patient/Caregiver Discharge Instructions Education Materials: Self-Care for Headaches, ED Dental Abscess Additional Instructions: Take the antibiotics as prescribed and complete the course even though you may be feeling better. Contact your dentist as soon as possible for care of your severely decayed teeth. This is likely the cause of your ongoing headache. Follow-up with your primary care physician in 24 to 48 hours. Return to the ED for any new or worsening symptoms. Print Language: Ugandan Stand Alone Forms: Leisa Award Info., Patient Portal Info Letter KAYKAY/CHELY Supervising Physician PA/CHELY Supervising Physician: Dr Jones
[2024-10-07] MEDS: ACETAMINOPHEN 500 MG TABLET 1000 MG PO (21:50)
== END 2024-10-07 21:55 | disposition home or self-care (01) ==
PROVIDERS: Emergency Provider Emergency Medicine
DX: K04.7 Periapical abscess without sinus (principal); R51.9 Headache, unspecified; R05.9 Cough, unspecified
CPT/HCPCS: 99282; A9270